=== PATIENT | male | born 1965 | race Two or more races ===

== ENCOUNTER 2019-01-26 20:46 | Emergency (ER) | payer SELFPAY ==
--- NOTE | 2019-01-26 21:22 | ED Physician Chart ---
ED Chief Complaint/HPI - Patient Information Date Seen:: 01/26/19 Time Seen:: 21:05 Chief Complaint:: headache and nausea and vomiting History of Present Illness:: Patient had onset 2 days ago of dizziness, diaphoresis, headache and vomiting. He vomited 4 times yesterday and 2 times today. No diarrhea. Headache pain is a 7 on a 10. No fever. Patient's daughter is accompanying the patient and will drive him home. Daughter served as science interpreter. Allergies:: Allergies Allergy/AdvReac Type Severity Reaction Status Date / Time No Known Allergies Allergy Verified 01/26/19 21:13 Vitals:: Vital Signs - 8 hr 01/26/19 20:54 Temp 98.1 F HR 65 RR 20 BP 119/71 O2 Sat % 96 Historian:: Patient, Family Member ED Review of Systems - Review of Systems General/Constitutional: No fever Skin: No skin lesions Head: Headache Eyes: No loss of vision ENT: No earache Neck: No neck pain Cardio Vascular: No chest pain Pulmonary: No SOB GI: Nausea, Vomiting, No pain G/U: No dysuria Musculoskeletal: No bone or joint pain Endocrine: No polyuria Psychiatric: No prior psych history, No depression, No anxiety Allergic/Immuno: No urticaria Neurological: No syncope, No focal symptoms, No weakness ED Past Medical History - Past Medical History Past Medical History: No significant medical hx Family History: Diabetes Melitus, Other (mother has diabetes) Social History: Non Smoker, No Alcohol Surgical History: None Psychiatricy History: None Medication: None ED Physical Exam - Physical Examination General/Constitutional: Awake, Well-developed, well-nourished, Alert, No distress Head: Atraumatic Eyes: Lids, conjuctiva normal, PERRL, EOMI Other Eyes comments:: Extraocular movements intact without nystagmus; optic disks sharp Skin: Nl inspection ENMT: External ears, nose nl, TM canals nl, Nasal exam nl, Lips, teeth, gums nl , Oropharynx nl, Tonsils nl Neck: No nuchal rigidity Respiratory: Nl effort/Exclusion, Clear to Auscultation, No Wheeze/Rhonchi/Rales Cardio Vascular: RRR, No murmur, gallop, rubs, NL S1 S2 GI: No tenderness/rebounding/guarding, No organomegaly, No hernia Other GI comments:: bowel sounds decreased. : No CVA tenderness Extremities: Normal digits & nails Neuro/Psych: No focal deficits Misc: No paraspinal tenderness ED Labs/Radiology/EKG Results - Lab Results Results: Laboratory Results WBC 8.7 Th/cmm (4.8-10.8) 01/26/19 21:35 RBC 4.95 Mil/cmm (4.30-5.70) 01/26/19 21:35 Hgb 14.6 gm/dL (12-16) 01/26/19 21:35 Hct 43.3 % (41.0-60) 01/26/19 21:35 MCV 87.3 fl (80-99) 01/26/19 21:35 MCH 29.4 pg (26.0-30.0) 01/26/19 21:35 MCHC Differential 33.7 pg (28.0-36.0) 01/26/19 21:35 RDW 12.5 % (11.5-20.0) 01/26/19 21:35 Plt Count 249 Th/cmm (150-400) 01/26/19 21:35 MPV 7.7 fl 01/26/19 21:35 Neutrophils % 62.5 % (40.0-80.0) 01/26/19 21:35 Lymphocytes % 28.6 % (20.0-50.0) 01/26/19 21:35 Monocytes % 5.8 % (2.0-10.0) 01/26/19 21:35 Eosinophils % 2.5 % (0.0-5.0) 01/26/19 21:35 Basophils % 0.6 % (0.0-2.0) 01/26/19 21:35 Sodium 136 mEq/L (136-145) 01/26/19 21:35 Potassium 3.7 mEq/L (3.5-5.1) 01/26/19 21:35 Chloride 103 mEq/L (98-107) 01/26/19 21:35 Carbon Dioxide 24.7 mEq/L (21.0-31.0) 01/26/19 21:35 Anion Gap 12.0 (7.0-16.0) 01/26/19 21:35 BUN 19 mg/dL (7-25) 01/26/19 21:35 Creatinine 0.6 mg/dL (0.7-1.3) L 01/26/19 21:35 Est GFR ( Amer) > 60.0 ml/min (>90) 01/26/19 21:35 Est GFR (Non-Af Amer) > 60.0 ml/min 01/26/19 21:35 BUN/Creatinine Ratio 31.7 01/26/19 21:35 Glucose 179 mg/dL (70-105) H 01/26/19 21:35 Calcium 9.6 mg/dL (8.6-10.3) 01/26/19 21:35 Magnesium 2.2 mg/dL (1.9-2.7) 01/26/19 21:35 Lipase 17 U/L (11-82) 01/26/19 21:35 ED Assessment - Assessment General Assessment: At 2230 patient felt improved. His blood sugar of 179 probably indicates he has diabetes. His mother has diabetes. Told the patient that he needs a fasting blood sugar to be ordered by her primary care physician. For his gastritis with vomiting I prescribed Zofran oral disintegrating tablets #6 to take one every 4-6 hours as necessary and encourage the patient have a regular diet. ED Septic Shock - . Is Septic Shock (SBP<90, OR Lactate>4 mmol\L) present?: No - <6hrs of presentation: Vital Signs: Vital Signs - 8 hr 01/26/19 20:54 Temp 98.1 F HR 65 RR 20 BP 119/71 O2 Sat % 96 ED Reassessment (Disposition) - Reassessment Reassessment Condition:: Improved - Diagnosis Diagnosis:: Viral gastritis with vomiting; hyperglycemia; probable new diagnosed diabetes - Aftercare/Follow up Instructions Aftercare/Follow-Up Instructions:: Refer to Discharge Instructions - Patient Disposition Discharge/Transfer:: Home Condition at Disposition:: Stable, Improved
[2019-01-26] MEDS ORDERED: Morphine Sulfate 4 mg/mL 1mL Syr ONE (21:25)
[2019-01-26] MEDS: Morphine Sulfate 4 mg/mL 1mL Syr IVP STA (21:37)
[2019-01-26] MEDS: Sodium Chloride 0.9% 1,000 ML IV ONE (21:38)
[2019-01-26 21:47] LABS: % BASOPHILS 0.6 % (0.0-2.0); % EOSINOPHILS 2.5 % (0.0-5.0); % LYMPHOCYTES 28.6 % (20.0-50.0); % MONOCYTES 5.8 % (2.0-10.0); % NEUTROPHILS 62.5 % (40.0-80.0); BASOPHILE ABSOLUTE 0.1 Th/cumm (0-0.2); EOSINOPHILE ABSOLUTE 0.2 Th/cmm (0.1-0.4); HEMATOCRIT 43.3 % (41.0-60); HEMOGLOBIN 14.6 gm/dL (12-16); LYMPHOCYTE ABSOLUTE 2.5 Th/cmm (1.5-3.0); MEAN CELL VOLUME 87.3 fl (80-99); MEAN CORPUSCULAR HEMOGLOBIN 29.4 pg (26.0-30.0); MEAN CORPUSCULAR HGB CONC 33.7 pg (28.0-36.0); MONOCYTE ABSOLUTE 0.5 Th/cmm (0.3-1.0); NEUTROPHILE ABSOLUTE 5.4 Th/cmm (1.8-8.0); PLATELET COUNT 249 Th/cmm (150-400); RED BLOOD COUNT 4.95 Mil/cmm (4.30-5.70); RED CELL DISTRIBUTION WIDTH 12.5 % (11.5-20.0); WHITE BLOOD COUNT 8.7 Th/cmm (4.8-10.8)
[2019-01-26 22:00] LABS: BUN - UREA NITROGEN 19 mg/dL (7-25); CALCIUM SERUM 9.6 mg/dL (8.6-10.3); CARBON DIOXIDE 24.7 mEq/L (21.0-31.0); CHLORIDE 103 mEq/L (98-107); CREATININE - SERUM 0.6 mg/dL (0.7-1.3); GFR AFRICAN-AMERICAN > 60.0 ml/min (>90); GFR NON AFRICAN-AMERICAN > 60.0 ml/min; GLUCOSE 179 mg/dL (70-105); LIPASE 17 U/L (11-82); MAGNESIUM 2.2 mg/dL (1.9-2.7); POTASSIUM SERUM 3.7 mEq/L (3.5-5.1); SODIUM SERUM 136 mEq/L (136-145)
== END 2019-01-26 22:43 | disposition home or self-care (01) ==
LOC: ER 20:46
DX: A08.4 Viral intestinal infection, unspecified (principal); R73.9 Hyperglycemia, unspecified
CPT/HCPCS: 99283; 96374; 96375; 36415; 85025; 83690; 83735; 80048; J2405; J7030; Z7502